=== PATIENT | female | born 1995 | race Caucasian/White ===

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

== ENCOUNTER 2017-02-18 07:59 | Emergency (ER) | payer MEDICAID ==
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
[2017-02-18 10:38] VITALS: BP 110/76
== END 2017-02-18 10:55 | disposition home or self-care (01) ==
LOC: ER 07:59
DX: S06.0X9A Concussion with loss of consciousness of unspecified duration, initial encounter (principal); S16.1XXA Strain of muscle, fascia and tendon at neck level, initial encounter; Y04.8XXA Assault by other bodily force, initial encounter; Y92.89 Other specified places as the place of occurrence of the external cause